=== PATIENT | male | born 1975 | race Caucasian/White ===

== ENCOUNTER 2020-08-11 12:11 | Emergency (ER) | payer BC, OTHER ==
[~2020-08-11] VITALS: Ht 180.3 cm; Wt 113.4 kg
[2020-08-11 13:14] VITALS: BP 128/81
== END 2020-08-11 14:25 | disposition home or self-care (01) ==
LOC: ER 12:11
DX: S67.42XA Crushing injury of left wrist and hand, initial encounter (principal); W26.8XXA Contact with other sharp object(s), not elsewhere classified, initial encounter; Y93.89 Activity, other specified; Y92.89 Other specified places as the place of occurrence of the external cause; Y99.8 Other external cause status
CPT/HCPCS: 73110; 73130